=== PATIENT | female | born 1940 | race Asian ===

== ENCOUNTER → 2017-11-01 | Outpatient (CLI) | payer MEDICARE, OTHER ==
[~2017-11-01] MED LIST: ASCO500 PO; ASPI81 PO; ATOR40TA28 PO; CALC1TAB15 PO; LOSA25TA21 PO; METF500T6 PO; OMEG1CAP12 PO; VITAD400 PO
== END | disposition home or self-care (01) ==
LOC: RADPV 11:41
PROVIDERS: ATTEND Internal Medicine
DX: M17.11 Unilateral primary osteoarthritis, right knee (principal); M79.89 Other specified soft tissue disorders